=== PATIENT | female | born 1960 | race Two or more races ===

== ENCOUNTER 2019-03-09 09:42 | Day surgery (SDC) | payer OTHER | END 2019-03-09 16:30 | disposition home or self-care (01) | LOC: AMB-ENDOS 09:42 | DX: D12.3 Benign neoplasm of transverse colon (principal); K57.30 Diverticulosis of large intestine without perforation or abscess without bleeding; K64.1 Second degree hemorrhoids ==

== ENCOUNTER 2019-11-06 06:00 | Outpatient (CLI) | payer OTHER | END 2019-11-06 06:10 | disposition home or self-care (01) | LOC: LAB 06:00 → ADM 13:00 → EDSTATUS 11-09 13:00 → AMB-ENDOS 11-09 13:00 | PROVIDERS: ATTEND Colon & Rectal Surgery | DX: D12.3 Benign neoplasm of transverse colon (principal); Z86.010 Personal history of colon polyps; K92.1 Melena; Z20.828 Contact with and (suspected) exposure to other viral communicable diseases; Z01.812 Encounter for preprocedural laboratory examination ==

== ENCOUNTER 2020-01-18 12:32 | Day surgery (SDC) | payer OTHER | END 2020-01-18 16:10 | disposition home or self-care (01) | LOC: AMB-ENDOS 12:32 | PROVIDERS: ATTEND Colon & Rectal Surgery | DX: K63.5 Polyp of colon (principal); K64.1 Second degree hemorrhoids ==